=== PATIENT | male | born 1975 | race Caucasian/White ===

== ENCOUNTER 2021-11-19 17:20 | Inpatient (IN) | payer MEDICARE, MEDICAID, SELFPAY ==
[2021-11-19 17:24] VITALS: BP 128/85; PULSE 72; RESP 17; TEMP 36.4; O2SAT 97
[2021-11-19 17:27] VITALS: BMI 30.8
[2021-11-19 20:59] VITALS: BP 127/87; PULSE 97; RESP 17; TEMP 36.4; O2SAT 97
[2021-11-20 00:06] LABS: Bilirubin Urine Neg (Negative); Blood Urine Neg (Negative); Glucose Urine UA Norm (Normal); Ketones Urine Negative (Negative); Leukocyte Esterase Urine Negative (Negative); Nitrate Urine Negative (Negative); Protein Urine Neg (Negative); Specific Gravity, Urine 1.005 (1.005-1.030); Urine Appearance Clear (CLEAR); Urine Color Straw (Yellow); Urobilinogen Urine Norm (Negative); pH Urine 7 (5-7)
[2021-11-20 05:24] VITALS: BP 146/105; PULSE 75; RESP 18; TEMP 36.4; O2SAT 100
--- NOTE | 2021-11-20 05:30 | PC.NURSE ---
Patient BP 145/105 with automatic cuff, 136/102 with manual ciff and auscultation. Patient did not sleep most of the night and refused all meds to assist with sleep, stating I only take things that are medically necessary. i don't take meds because I need to be able to think about the things I have gone through. I educated patient on importance of sleep and mental health, and how lack of sleep can affect the body including the heart. Offered patient PRN hydroxyzine PO and patient refused, stating, I don't think its medically necessary.
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
[2021-11-20 13:37] VITALS: BP 121/81; PULSE 67; RESP 18; TEMP 36.6; O2SAT 99
[2021-11-20 21:07] VITALS: BP 134/88; PULSE 59; RESP 17; TEMP 36.6; O2SAT 98
[2021-11-21 06:00] VITALS: BP 148/79; PULSE 73; RESP 18; TEMP 36.8; O2SAT 97
[2021-11-21 14:00] VITALS: BP 137/91; PULSE 66; RESP 16; O2SAT 98
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
[2021-11-21 21:09] VITALS: BP 136/90; PULSE 70; RESP 22; TEMP 36.6; O2SAT 99
[2021-11-22 05:41] VITALS: BP 123/90; PULSE 78; RESP 17; TEMP 36.3; O2SAT 99
[2021-11-22 14:00] VITALS: RESP 18
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
[2021-11-22 21:11] VITALS: BP 143/89; PULSE 103; RESP 18; TEMP 36.4; O2SAT 100
[2021-11-23] MEDS: haloperidol inj 5 mg/mL INJ 1 mL IM (02:48)
[2021-11-23] MEDS: LORazepam 2 mg/mL INJ 1 mL IM (02:49)
[2021-11-23] MEDS: diphenhydrAMINE 50 mg/mL SDV 1mL IM (02:49)
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
[2021-11-23 06:00] VITALS: RESP 16
[2021-11-23 14:00] VITALS: BP 120/82; PULSE 92; RESP 18; TEMP 36.4; O2SAT 99
--- NOTE | 2021-11-23 18:18 | W.PM.NPUPNS ---
Subjective NPU Subjective: Interval history: Patient presents today reporting that he is doing great. He had no explanation for the events of last night reporting that he is fine now. I did those episodes are suggestive of the need for medication given the time and the presentation. He reports that I needed to speak up for myself. He reported feeling like people always take advantage of him and that he needs to stand up for himself and stand up for God. We again discussed medication he reported that God will take care of him and everything is in God's hands. He talked about when to go be a missionary in [place]. Mental Status Exam MSE Comments: This is an obese white male in hospital scrubs with limited grooming and eye contact.? No abnormal movements except for mild psychomotor agitation.? Mostly cooperative with exam in mild distress.? Speech was normal rate and volume.? Mood described as okay affect odd.? Thought process organized.? Thought content: Patient denied suicidal or homicidal ideations, there were no delusions reported but clear hyper yarsanism, paranoid and persecutory delusions were noted, he denied auditory or visual hallucinations but spoke about hearing from God.? Attention and concentration were intact and memory appeared reliable but none were formally tested.? He is alert and oriented x3.? Insight and judgment are impaired and impulse control is limited to impaired Vitals/I&O/Wt Last Vital Signs Temp 97.9 F 11/23/21 21:27 Pulse 102 H 11/23/21 21:27 Resp 16 11/23/21 21:27 BP 148/84 11/23/21 21:27 Pulse Ox 99 11/23/21 21:27 A&P Assessment and plan (1) Schizoaffective disorder, bipolar type: Status: Acute Plan This is a 46-year-old resident of a residential care facility who comes because of increased hallucinations and delusions. Plan: 1.? Will observe only on as needed olanzapine zydis and other routine as needed medications at this time.? He would clearly benefit from an antipsychotic. We will initiate medications tomorrow with injection for refusal. 2.? Continue every 15 minute checks for safety. 3.? Encourage individual, group and milieu therapies. 4.? Encourage sober living treatment after discharge at the highest level of care to which he is willing to commit. 5.? We will try to get him to consider taking medication, but is resistent. Involuntary Hold Information 96 Hour Hold: 96 Hour Involuntary Admission: No Attestations NPU Medical Necessity Statement*: Inpatient hospitalization is medically necessary and the clinically appropriate intervention at this time.? We will initiate medications and make changes as indicated.?Likely length of stay 4-6 days Coding Level of Care Code Acute Screen Cutter And Trimmer for [facility] Fwd Diagnoses Schizoaffective disorder, bipolar type F25.0
[2021-11-23 21:27] VITALS: BP 148/84; PULSE 102; RESP 16; TEMP 36.6; O2SAT 99
[2021-11-24 06:00] VITALS: BP 120/74; PULSE 79; RESP 16; O2SAT 97; BMI 30.8
--- NOTE | 2021-11-24 09:21 | PC.NURSE ---
Patient up. Denies SI/HI or AVH. Thought process remains delusional and bizarre. Frequently talking to self. Paces in vargas often. Had brief outburst. Yelling, in another patient's room, refused to leave, going through that patient's paperwork, laid in her bed yelling that he needed to be crucified. Flipped staff off and yelled at them when redirection attempted. Threatening posture, yelling call security. Security called. Before security arrived patient was able to be redirected by staff and calmed quickly then. Apologized for outburst and being in another's belongings. Left room and went to dayroom. Offered PRN medications but patient refused and stated he would remain calm. No further outbursts at this time.
[2021-11-24 14:00] VITALS: BP 137/92; PULSE 76; RESP 16; TEMP 36.6; O2SAT 100
--- NOTE | 2021-11-24 15:01 | P.NPUPN_ITS ---
Subjective NPU Subjective: Interval history: Patient presents today with no significant changes and continuing to be clearly hyper samaritan and at times aggressive. He has had multiple occasions where he has needed as needed medication. We discussed that we attempted to reach his guardian without success and we will try again tomorrow. We discussed the fact that medication would need to be started which he definitely opposed. Mental Status Exam MSE Comments: This is an obese white male in hospital scrubs with limited grooming and eye contact.? No abnormal movements except for mild psychomotor agitation.? Mostly cooperative with exam in mild distress.? Speech was normal rate and volume.? Mood described as blessed affect odd.? Thought process organized.? Thought content: Patient denied suicidal or homicidal ideations, there were no delusions reported but clear hyper samaritan, paranoid and persecutory delusions were noted, he denied auditory or visual hallucinations but spoke about hearing from God.? Attention and concentration were intact and memory appeared reliable but none were formally tested.? He is alert and oriented x3.? Insight and judgment are impaired and impulse control is limited to impaired Vitals/I&O/Wt Last Vital Signs Temp 97.9 F 11/24/21 14:00 Pulse 76 11/24/21 14:00 Resp 16 11/24/21 14:00 BP 137/92 11/24/21 14:00 Pulse Ox 100 11/24/21 14:00 Weight last 48 hrs Weight 94.801 kg A&P Assessment and plan (1) Schizoaffective disorder, bipolar type: Status: Acute (2) Psychosis: Status: Acute Plan This is a 46-year-old resident of a residential care facility who comes because of increased hallucinations and delusions. Plan: 1.? Will observe only on as needed olanzapine zydis and other routine as needed medications at this time.? He would clearly benefit from an antipsychotic.? We will initiate medications tomorrow with injection for refusal. Attempted again to reach guardian will 2.? Continue every 15 minute checks for safety. 3.? Encourage individual, group and milieu therapies. 4.? Encourage sober living treatment after discharge at the highest level of care to which he is willing to commit. 5.? We will try to get him to consider taking medication, but is resistent. Initiate medication once we get clarification. Involuntary Hold Information 96 Hour Hold: 96 Hour Involuntary Admission: No Attestations NPU Medical Necessity Statement*: Inpatient hospitalization is medically necessary and the clinically appropriate intervention at this time.? We will initiate medications and make changes as indicated.?Likely length of stay 4-6 days Coding Level of Care Code Acute Assistant To The President for g Fwd Diagnoses Schizoaffective disorder, bipolar type F25.0 Psychosis F29
[2021-11-24 21:38] VITALS: BP 146/81; PULSE 77; RESP 16; TEMP 36.7; O2SAT 98
[2021-11-24] MEDS: blistex lip oint 7 gm Tube 1 APPLIC TOPICAL (21:58)
[2021-11-25 05:16] VITALS: BP 124/91; PULSE 87; RESP 22; TEMP 36.7; O2SAT 97
--- NOTE | 2021-11-25 12:34 | NPU.GN ---
[facility] Group Topic:Whine Barrel Group Activity General Mood of Group: Adrien did attend and participate in group today. His hygiene was ok.
[2021-11-25 14:00] VITALS: BP 132/82; PULSE 119; RESP 20; TEMP 36.7; O2SAT 95
--- NOTE | 2021-11-25 14:00 | PC.NURSE ---
Patient's guardian, Alonzo Estrada, contacted by staff to evaluate outlook of medications. Guardian was in agreeance with staff that patient is in need of medications for his safety and gave consent for medications to be given. May give IM meds if needed.
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
[2021-11-25] MEDS: diphenhydrAMINE 50 mg/mL SDV 1mL IM (17:00)
[2021-11-25] MEDS: haloperidol inj 5 mg/mL INJ 1 mL IM (17:00)
[2021-11-25] MEDS: LORazepam 2 mg/mL INJ 1 mL IM (17:00)
--- NOTE | 2021-11-25 17:42 | PC.NURSE ---
PATIENT RESTING IN BED WITH EYES CLOSED, SNORING. NO DISTRESS NOTED. WILL CONT TO MONITOR, SUPPORT AND REDIRECT NEEDED
--- NOTE | 2021-11-25 19:04 | PC.NURSE ---
Staff attempted to call guardian to notify of code 10 situation. No answer and no option to leave message for return call. Staff will attempt to call again in morning.
[2021-11-25 22:00] VITALS: BP 119/80; PULSE 92; RESP 18; TEMP 36.4; O2SAT 97
[2021-11-26] MEDS: OLANZapine 5 mg ODT PO ×2 (05:59→20:55)
[2021-11-26 06:00] VITALS: BP 142/89; PULSE 86; RESP 17; TEMP 36.9; O2SAT 93
[2021-11-26] MEDS: haloperidol inj 5 mg/mL INJ 1 mL IM (06:05)
[2021-11-26] MEDS: diphenhydrAMINE 50 mg/mL SDV 1mL IM (06:05)
[2021-11-26] MEDS: LORazepam 2 mg/mL INJ 1 mL IM (06:05)
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
--- NOTE | 2021-11-26 13:11 | PC.NURSE ---
1235 Pt refused 6mg PO Invega.
--- NOTE | 2021-11-26 13:12 | NPU.GN ---
[facility] Topic: Triggers, Coping Skills, Crisis Intervention Plan General Mood of Group: Adrien did attend and participate in group this morning. Hygiene was ok. He got up and left group a few times coming in and out of group. He does not seem stable at this time.
[2021-11-26] MEDS: ziprasidone 20 mg/mL SDV IM (13:31)
[2021-11-26 14:00] VITALS: BP 122/77; PULSE 92; RESP 16; TEMP 36.6; O2SAT 99
[2021-11-26] MEDS: paliperidone ER 6 mg Tablet PO (14:02)
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
[2021-11-26 21:23] VITALS: BP 132/92; PULSE 106; RESP 16; TEMP 37; O2SAT 97
--- NOTE | 2021-11-26 22:55 | PC.NURSE ---
PT GIVEN ZYPRXA THIS EVENING DUE TO ELEVATED BP AND TO HELP PREVENT AGGRESSIVE RAMPS
[2021-11-27 06:00] VITALS: BP 121/79; PULSE 86; RESP 18; TEMP 36.3; O2SAT 97
[2021-11-27] MEDS: paliperidone ER 6 mg Tablet PO (07:55)
[2021-11-27 14:00] VITALS: BP 151/95; PULSE 88; RESP 18; TEMP 36.3; O2SAT 99
--- NOTE | 2021-11-27 16:34 | P.NPUPN_ITS ---
Subjective NPU Subjective: Interval history: Patient presents today for the first time open to taking his medications orally without any challenge. He took them today without any prodding or pressure. He denied any side effects to the medication. He was very optimistic about how great he was feeling. He denied any problems or concerns. Mental Status Exam MSE Comments: This is an obese white male in hospital scrubs with limited grooming and eye contact.? No abnormal movements except for mild psychomotor agitation.? More cooperative with exam in no acute distress.? Speech was slightly increased rate and volume.? Mood described as great, affect manic.? Thought process disorganized.? Thought content: Patient denied suicidal or homicidal ideations, there were no delusions reported but clear hyper congregation, paranoid and persecutory delusions were noted, he denied auditory or visual hallucinations.? Attention and concentration were impaired and memory appeared unreliable but none were formally tested.? He is alert and oriented x3.? Insight and judgment are impaired and impulse control is limited. Vitals/I&O/Wt Last Vital Signs Temp 97.4 F L 11/27/21 14:00 Pulse 88 11/27/21 14:00 Resp 18 11/27/21 14:00 BP 151/95 11/27/21 14:00 Pulse Ox 99 11/27/21 14:00 A&P Assessment and plan (1) Psychosis: Status: Acute (2) Schizoaffective disorder, bipolar type: Status: Acute Plan This is a 46-year-old resident of a residential care facility who comes because of increased hallucinations and delusions. Plan: 1.? Started Invega 6 mg p.o. daily. ? We will initiate injection of Haldol or Geodon for p.o. refusal.? If continued improvement exist we will quickly moved to Invega Sustenna injection. The possibility exists for him to move to every 3 month or two 6-month injections at some point. 2.? Continue every 15 minute checks for safety. 3.? Encourage individual, group and milieu therapies. 4.? Encourage sober living treatment after discharge at the highest level of care to which he is willing to commit. 5. Patient showing improvement and is taking medication but likely not as improved as he is reporting clear manic symptoms or presentation exists. Involuntary Hold Information 96 Hour Hold: 96 Hour Involuntary Admission: No Attestations NPU Medical Necessity Statement*: Inpatient hospitalization is medically necessary and the clinically appropriate intervention at this time.? We will initiate medications and make changes as indicated.?Likely length of stay 7-9 days Coding Level of Care Code Acute Weaver Needle Loom for g Fwd Diagnoses Psychosis F29 Schizoaffective disorder, bipolar type F25.0
[2021-11-27 22:00] VITALS: BP 143/78; PULSE 82; RESP 16; TEMP 36.6; O2SAT 97
[2021-11-28 06:00] VITALS: BP 119/79; PULSE 74; RESP 18; TEMP 36; O2SAT 96
[2021-11-28] MEDS: paliperidone ER 6 mg Tablet PO (09:42)
--- NOTE | 2021-11-28 13:24 | P.NPUPN_ITS ---
Subjective NPU Subjective: Interval history: Patient presents today seeming to be a little less well yesterday. We discussed that likely the medications that he received 2 days ago impacted him in addition to the starting of the Invega. He continues to report that he feels great but we discussed that it seems he is a little more manic. We discussed the risk- benefit alternatives of continuing to titrate the Invega and he understood and agreed proceed as is documented in this note. Mental Status Exam MSE Comments: This is an obese white male in hospital scrubs with limited grooming and eye contact.? No abnormal movements except for mild psychomotor agitation.? More cooperative with exam in mild distress.? Speech was slightly increased rate and volume.? Mood described as great, affect manic.? Thought process disorganized.? Thought content: Patient denied suicidal or homicidal ideations, there were no delusions reported but clear hyper temple, paranoid and persecutory delusions were noted, he denied auditory or visual hallucinations.? Attention and concentration were impaired and memory appeared unreliable but none were formally tested.? He is alert and oriented x3.? Insight and judgment are impaired and impulse control is limited. Vitals/I&O/Wt Last Vital Signs Temp 96.8 F L 11/28/21 06:00 Pulse 74 11/28/21 06:00 Resp 18 11/28/21 06:00 BP 119/79 11/28/21 06:00 Pulse Ox 96 11/28/21 06:00 A&P Assessment and plan (1) Psychosis: Status: Acute (2) Schizoaffective disorder, bipolar type: Status: Acute Plan This is a 46-year-old resident of a residential care facility who comes because of increased hallucinations and delusions. Plan: 1.? Increase Invega to 9 mg p.o. daily. ? We will initiate injection of Geodon for p.o. refusal.? If continued improvement exist we will quickly moved to Invega Sustenna injection.? The possibility exists for him to move to every 3 month or two 6-month injections at some point. We will likely introduce Geodon at night tomorrow again with injection of Geodon for p.o. refusal. 2.? Continue every 15 minute checks for safety. 3.? Encourage individual, group and milieu therapies. 4.? Encourage sober living treatment after discharge at the highest level of care to which he is willing to commit. 5.? Patient showing improvement and is taking medication but likely not as improved as he is reporting clear manic symptoms. Involuntary Hold Information 96 Hour Hold: 96 Hour Involuntary Admission: No Attestations NPU Medical Necessity Statement*: Inpatient hospitalization is medically necessary and the clinically appropriate intervention at this time.? We will initiate medications and make changes as indicated.?Likely length of stay 7-8 days Coding Level of Care Code Acute Door To Door Fundraising Collector for [facility] Fwd Diagnoses Psychosis F29 Schizoaffective disorder, bipolar type F25.0
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
[2021-11-28 14:00] VITALS: BP 145/91; PULSE 89; RESP 18; TEMP 36.8; O2SAT 97
[2021-11-28 20:51] VITALS: BP 120/83; PULSE 105; RESP 17; TEMP 36.8; O2SAT 98
[2021-11-28] MEDS: LORazepam 2 mg Tablet PO (20:55)
[2021-11-28] MEDS: ziprasidone hcl 40 mg Capsule PO (20:55)
--- NOTE | 2021-11-28 21:10 | PC.NURSE ---
PATIENT WAS ON PHONE. BECAME ANGRY, AGRESSIVE, HOSTILE AND VIOLENT. POUNDING ON WINDOW THREATENING STAFF, DARING FOR STAFF TO SHOOT / TAZE HIM. SECURITY CALLED PIN MACHINE OPERATOR CALLED. ORDER OBTAINED FROM DR. MELGAR FOR [id number] PO AND ATAVAN 2MG PO GIVE NOW.
[2021-11-29 06:00] VITALS: BP 128/82; PULSE 76; RESP 18; TEMP 36.4; O2SAT 97
[2021-11-29] MEDS: paliperidone ER 3 mg Tablet 9 MG PO (10:08)
[2021-11-29 14:00] VITALS: BP 171/111; PULSE 100; RESP 20; TEMP 36.6; O2SAT 100
--- NOTE | 2021-11-29 17:04 | W.PM.NPUPNS ---
Subjective NPU Subjective: Interval history: Patient presents today with again expressing his desire not to take the medication. We continue to enforce with him the IM injection for p.o. refusal. We also continue to reinforce that he has a guardian and that the appropriate way to institute a change would be to get his guardian to treat as an alternative style of treatment. He seemed open to managing things that way reporting that he would continue the medication until agreement for change was reached. Luz Maria sat and he was allowed to speak he was very much focused on normalizing his thinking about attraction to younger people trying to make clarifications of situations where it would officially be okay speaking about ages of the above 18 and 21 and things of that nature. Mental Status Exam MSE Comments: This is an obese white male in hospital scrubs with limited grooming and eye contact.? No abnormal movements except for occasional moments of mild psychomotor agitation.? More cooperative with exam in with occasional moments of mild distress.? Speech was slightly increased rate and volume.? Mood described as really good, affect more calm at times.? Thought process disorganized, with moments of organization Thought content: Patient denied suicidal or homicidal ideations, there were no delusions reported but clear hyper spiritism, paranoid and persecutory delusions were noted, he denied auditory or visual hallucinations.? Attention and concentration were impaired and memory appeared unreliable but none were formally tested.? He is alert and oriented x3.? Insight and judgment are impaired and impulse control is limited. Vitals/I&O/Wt Last Vital Signs Temp 97.6 F 11/29/21 20:55 Pulse 100 11/29/21 20:55 Resp 20 H 11/29/21 20:55 BP 131/89 11/29/21 20:55 Pulse Ox 99 11/29/21 20:55 A&P Assessment and plan (1) Psychosis: Status: Acute (2) Schizoaffective disorder, bipolar type: Status: Acute Plan This is a 46-year-old resident of a residential care facility who comes because of increased hallucinations and delusions. Plan: 1.? Increase Invega to 9 mg p.o. daily. ? We will initiate injection of Geodon for p.o. refusal.? If continued improvement exist we will quickly moved to Invega Sustenna injection.? The possibility exists for him to move to every 3 month or two 6-month injections at some point.? We started Geodon 40 mg p.o. q. evening with meals again with injection of Geodon for p.o. refusal. 2.? Continue every 15 minute checks for safety. 3.? Encourage individual, group and milieu therapies. 4.? Encourage sober living treatment after discharge at the highest level of care to which he is willing to commit. 5.? Patient showing improvement and is taking medication but likely not as improved as he is reporting clear manic symptoms. Involuntary Hold Information 96 Hour Hold: 96 Hour Involuntary Admission: No Attestations NPU Medical Necessity Statement*: Inpatient hospitalization is medically necessary and the clinically appropriate intervention at this time.? We will initiate medications and make changes as indicated.?Likely length of stay 6-7 days Coding Level of Care Code Acute Lawn Mower Sharpener for Kiana Mena Diagnoses Psychosis F29 Schizoaffective disorder, bipolar type F25.0
[2021-11-29] MEDS: ziprasidone hcl 40 mg Capsule PO (17:09)
[2021-11-29 20:55] VITALS: BP 131/89; PULSE 100; RESP 20; TEMP 36.4; O2SAT 99
[2021-11-30 06:00] VITALS: BP 131/92; PULSE 98; RESP 20; TEMP 36.4; O2SAT 98
[2021-11-30] MEDS: paliperidone ER 3 mg Tablet 9 MG PO (08:34)
[2021-11-30] MEDS: OLANZapine 5 mg ODT PO (08:36)
[2021-11-30 14:00] VITALS: BP 129/88; PULSE 80; RESP 17; TEMP 36.8; O2SAT 99
[2021-11-30] MEDS: ziprasidone hcl 40 mg Capsule PO (17:12)
--- NOTE | 2021-11-30 17:59 | W.PM.NPUPNS ---
Subjective NPU Subjective: Interval history: Patient presents today continuing to take his medication but continuing to have active tari. At 1 point in the day he asked that the 2 of us could go out on a date. He at this point is adhering to the agreement that he take his medication to avoid needing an injection but otherwise no outburst in the last 24 to 48 hours. He is eating and sleeping better. And taking his medication as scheduled. Mental Status Exam MSE Comments: This is an obese white male in hospital scrubs with limited grooming and eye contact.? No abnormal movements except for occasional moments of mild psychomotor agitation.? More cooperative with exam in no acute distress.? Speech was slightly increased rate and volume.? Mood described as great, affect more calm but still euphoric.? Thought process more organized and less hyper quaker thought content: Patient denied suicidal or homicidal ideations, there were no delusions reported but decreasing delusions with ideas paranoid and persecutory overtones, he denied auditory or visual hallucinations.? Attention and concentration are improving and memory appeared unreliable but none were formally tested.? He is alert and oriented x3.? Insight and judgment are limited and impulse control is limited. Vitals/I&O/Wt Last Vital Signs Temp 98.3 F 11/30/21 14:00 Pulse 80 11/30/21 14:00 Resp 17 11/30/21 14:00 BP 129/88 11/30/21 14:00 Pulse Ox 99 11/30/21 14:00 A&P Assessment and plan (1) Psychosis: Status: Acute (2) Schizoaffective disorder, bipolar type: Status: Acute Plan This is a 46-year-old resident of a residential care facility who comes because of increased hallucinations and delusions. Plan: 1.? Increase Invega to 9 mg p.o. daily. ? We will initiate injection of Geodon for p.o. refusal.? If continued improvement exist we will quickly moved to Invega Sustenna injection.? The possibility exists for him to move to every 3 month or two 6-month injections at some point.? We started Geodon 40 mg p.o. q. evening with meals again with injection of Geodon for p.o. refusal. 2.? Continue every 15 minute checks for safety. 3.? Encourage individual, group and milieu therapies. 4.? Encourage sober living treatment after discharge at the highest level of care to which he is willing to commit. 5.? Patient showing improvement and is taking medication but likely not as improved as he is reporting clear manic symptoms. Involuntary Hold Information 96 Hour Hold: 96 Hour Involuntary Admission: No Attestations NPU Medical Necessity Statement*: Inpatient hospitalization is medically necessary and the clinically appropriate intervention at this time.? We will initiate medications and make changes as indicated.?Likely length of stay 6-7 days. Coding Level of Care Code Acute Social Sciences Department Chair for Kiana Mena Diagnoses Psychosis F29 Schizoaffective disorder, bipolar type F25.0
[2021-11-30 21:30] VITALS: BP 127/68; PULSE 68; RESP 17; TEMP 36.8; O2SAT 98
[2021-12-01 06:00] VITALS: BP 118/69; PULSE 85; RESP 18; TEMP 36.8; O2SAT 96; BMI 30.8
[2021-12-01] MEDS: paliperidone ER 3 mg Tablet 9 MG PO (09:48)
--- NOTE | 2021-12-01 09:59 | W.PM.NPUPNS ---
Subjective NPU Subjective: Interval history: Patient presents today reporting that he is feeling wonderful. He continues to have clear euphoria at times saying he is doing his well as he is ever done and the things are wonderful. This morning he took his medication without concern and is eating and sleeping fine. He is very interactive and is denying any problems though continues to be manic. Mental Status Exam MSE Comments: This is an obese white male in hospital scrubs with limited grooming and eye contact.? No abnormal movements except for occasional moments of mild psychomotor agitation.? More cooperative with exam in no acute distress.? Speech was slightly increased rate and volume.? Mood described as wonderful, affect more calm but still euphoric.? Thought process more organized and less hyper advent thought content: Patient denied suicidal or homicidal ideations, there were no delusions reported but decreasing delusions with obvious paranoid and persecutory overtones, he denied auditory or visual hallucinations.? Attention and concentration are improving and memory appeared unreliable but none were formally tested.? He is alert and oriented x3.? Insight and judgment are limited and impulse control is limited. Vitals/I&O/Wt Last Vital Signs Temp 98.3 F 12/01/21 06:00 Pulse 85 12/01/21 06:00 Resp 18 12/01/21 06:00 BP 118/69 12/01/21 06:00 Pulse Ox 96 12/01/21 06:00 A&P Assessment and plan (1) Schizoaffective disorder, bipolar type: Status: Acute (2) Psychosis: Status: Acute (3) Toma: Status: Acute Plan This is a 46-year-old resident of a residential care facility who comes because of increased hallucinations and delusions. Plan: 1.? Increase Invega to 9 mg p.o. daily. ? We will initiate injection of Geodon for p.o. refusal.? If continued improvement exist we will quickly moved to Invega Sustenna injection.? The possibility exists for him to move to every 3 month or two 6-month injections at some point.? We started Geodon 40 mg p.o. q. evening with meals again with injection of Geodon for p.o. refusal. May consider initiating a morning Geodon dose to continue addressing his toma. 2.? Continue every 15 minute checks for safety. 3.? Encourage individual, group and milieu therapies. 4.? Encourage sober living treatment after discharge at the highest level of care to which he is willing to commit. 5.? Patient showing improvement and is taking medication but likely not as improved as he is reporting, with clear manic symptoms. Involuntary Hold Information 96 Hour Hold: 96 Hour Involuntary Admission: No Attestations NPU Medical Necessity Statement*: Inpatient hospitalization is medically necessary and the clinically appropriate intervention at this time.? We will initiate medications and make changes as indicated.?Likely length of stay 6-7 days. Coding Level of Care Code Acute Medical Assistant Prn for [facility] Fwd Diagnoses Schizoaffective disorder, bipolar type F25.0 Psychosis F29 Toma F30.9
[2021-12-01 14:00] VITALS: BP 152/96; PULSE 85; RESP 16; TEMP 36.3; O2SAT 99
[2021-12-01] MEDS: ziprasidone 20 mg/mL SDV IM (18:44)
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
[2021-12-01 20:57] VITALS: BP 132/85; PULSE 99; RESP 17; TEMP 36.7; O2SAT 98
[2021-12-02 06:00] VITALS: BP 135/87; PULSE 94; RESP 18; TEMP 36.6; O2SAT 100
[2021-12-02] MEDS: paliperidone palmitate 234 mg Syringe IM (12:31)
[2021-12-02] MEDS: ziprasidone 20 mg/mL SDV IM (12:32)
--- NOTE | 2021-12-02 12:54 | W.PM.NPUPNS ---
Subjective NPU Subjective: Interval history: Patient presents today once again refusing his medication. We called multiple security guards and staff on the unit and preparation of having to force of the medication. Ultimately we did not have to restrain him and took medication as prescribed. In addition to the IM Geodon 20 mg which was the force medication for not taking the oral Geodon he got his first dose of Invega 234 mg IM as a loading dose. This was explained to him. He ultimately said that he does not like taking the medication but sometimes you have taken a shot better than taking the pills possibly to be a martyr of sorts. We discussed that his guardian had okayed switching to the IM medication. His prepress technician was also supportive of him going to IM for least the Invega. Mental Status Exam MSE Comments: This is an obese white male in hospital scrubs with limited grooming and eye contact.? No abnormal movements except for occasional moments of mild psychomotor agitation.? More cooperative with exam in no acute distress.? Speech was slightly increased rate and volume.? Mood described as great, affect more calm but still euphoric.? Thought process more organized and less hyper jew thought content: Patient denied suicidal or homicidal ideations, there were no delusions reported but decreasing delusions with obvious paranoid and persecutory overtones, he denied auditory or visual hallucinations.? Attention and concentration are improving and memory appeared unreliable but none were formally tested.? He is alert and oriented x3.? Insight and judgment are limited and impulse control is limited. Vitals/I&O/Wt Last Vital Signs Temp 97.8 F 12/02/21 06:00 Pulse 94 12/02/21 06:00 Resp 18 12/02/21 06:00 BP 135/87 12/02/21 06:00 Pulse Ox 100 12/02/21 06:00 Weight last 48 hrs Weight 94.801 kg A&P Assessment and plan (1) Toma: Status: Acute (2) Psychosis: Status: Acute (3) Schizoaffective disorder, bipolar type: Status: Acute Plan This is a 46-year-old resident of a residential care facility who comes because of increased hallucinations and delusions. Plan: 1.? Continue current medication. Except we started Geodon 40 mg p.o. q. evening with meals again with injection of Geodon for p.o. refusal.? Increasing Geodon to 40 mg p.o. twice daily with meals and will give Invega Sustenna 234 mg IM to deltoid for first loading dose. 2.? Continue every 15 minute checks for safety. 3.? Encourage individual, group and milieu therapies. 4.? Encourage sober living treatment after discharge at the highest level of care to which he is willing to commit. 5.? Patient showing improvement and is taking medication but likely not as improved as he is reporting, with clear manic symptoms. Involuntary Hold Information 96 Hour Hold: 96 Hour Involuntary Admission: No Attestations NPU Medical Necessity Statement*: Inpatient hospitalization is medically necessary and the clinically appropriate intervention at this time.? We will initiate medications and make changes as indicated.?Likely length of stay 6-7 days. Coding Level of Care Code Acute Care Professional for [facility] Diagnoses Toma F30.9 Psychosis F29 Schizoaffective disorder, bipolar type F25.0
--- NOTE | 2021-12-02 13:12 | NPU.GN ---
[facility] Topic: Whine Barrel Activity General Mood of Group: Adrien did participate and attend group today. His hygiene was ok. He was social in group.
[2021-12-02 14:00] VITALS: BP 132/89; PULSE 90; RESP 20; TEMP 36.6; O2SAT 98
[2021-12-02] MEDS: ziprasidone hcl 40 mg Capsule PO (17:27)
[2021-12-02 22:00] VITALS: BP 115/70; PULSE 86; RESP 18; O2SAT 97
[2021-12-03 06:00] VITALS: BP 137/92; PULSE 106; RESP 20; TEMP 36.8; O2SAT 97
[2021-12-03] MEDS: ziprasidone hcl 40 mg Capsule PO ×2 (08:45→17:03)
--- NOTE | 2021-12-03 13:04 | NPU.GN ---
[facility] Topic: Self Care General Mood of Group: Adrien did attend and particpate in group today. He did well. He does not seem stable at this time. Unless this is his baseline behavior. During the group he would often start giggling and rocking . Hygiene was ok.
[2021-12-03 14:00] VITALS: BP 125/78; PULSE 88; RESP 17; TEMP 36.9; O2SAT 98
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
[2021-12-03 20:23] VITALS: BP 128/87; PULSE 88; RESP 16; TEMP 36.9; O2SAT 99
[2021-12-04 05:46] VITALS: BP 129/80; PULSE 94; RESP 17; TEMP 36.8; O2SAT 94
[2021-12-04] MEDS: ziprasidone hcl 40 mg Capsule PO ×2 (08:40→16:54)
--- NOTE | 2021-12-04 12:56 | NPU.GN ---
[facility] Topic:Coping Skills General Mood of Group: Adrien did attend and participated in group today. He seems to be getting better. He was social and his hygiene was good.
[2021-12-04 13:50] VITALS: PULSE 92; RESP 20; TEMP 36.9; O2SAT 98
--- NOTE | 2021-12-04 17:58 | P.NPUPN_ITS ---
Subjective NPU Subjective: Interval history: Patient presented today reporting that he is feeling much better. He did not have outbursts or need for as needed interventions or medications. He took his medication as prescribed. He expressed gratitude about how he has been treated during the time that this contract writer was here as we discussed the Dr. Oakley would be here tomorrow making independent decisions about moving forward with treatment. We discussed the plan for his second loading dose of Invega to be given prior to discharge and no later than next Thursday. He reported eating and sleeping fine. Mental Status Exam MSE Comments: This is an obese white male in hospital scrubs with limited grooming and eye contact.? No abnormal movements except for mild psychomotor retardation.? More cooperative with exam in no acute distress.? Speech was more normal rate and volume.? Mood described as pretty good, affect more calm.? Thought process more organized and less hyper amish thought content: Patient denied suicidal or homicidal ideations, there were no delusions reported and decreasing delusions with less paranoid and persecutory overtones, he denied auditory or visual hallucinations.? Attention and concentration are improving and memory appeared unreliable but none were formally tested.? He is alert and oriented x3.? Insight and judgment are limited and impulse control is limited. Vitals/I&O/Wt Last Vital Signs Temp 98.0 F 12/04/21 20:19 Pulse 94 12/04/21 20:19 Resp 24 H 12/04/21 20:19 BP 152/91 12/04/21 20:19 Pulse Ox 96 12/04/21 20:19 A&P Assessment and plan (1) Toma: Status: Acute (2) Psychosis: Status: Acute (3) Schizoaffective disorder, bipolar type: Status: Acute Plan This is a 46-year-old resident of a residential care facility who comes because of increased hallucinations and delusions. Plan: 1.? Continue current medication.? Increased Geodon to 40 mg p.o. twice daily with meals with injection of Geodon for p.o. refusal.? and gave Invega Sustenna 234 mg IM to deltoid for first loading dose. Next dose due IM deltoid 156 mg by December 09, 2021. 2.? Continue every 15 minute checks for safety. 3.? Encourage individual, group and milieu therapies. 4.? Encourage sober living treatment after discharge at the highest level of ca re to which he is willing to commit. 5.? Patient showing improvement and is taking medication but likely not as improved as he is reporting, with clear manic symptoms. Involuntary Hold Information 96 Hour Hold: 96 Hour Involuntary Admission: No Attestations NPU Medical Necessity Statement*: Inpatient hospitalization is medically necessary and the clinically appropriate intervention at this time.? We will initiate medications and make changes as indicated.?Likely length of stay 5-6 days. Coding Level of Care Code Acute Tube Builder Airplane for [facility] Diagnoses Toma F30.9 Psychosis F29 Schizoaffective disorder, bipolar type F25.0
[2021-12-04 20:19] VITALS: BP 152/91; PULSE 94; RESP 24; TEMP 36.7; O2SAT 96
[2021-12-05 06:00] VITALS: BP 124/77; PULSE 82; RESP 18; TEMP 36.6; O2SAT 97
[2021-12-05] MEDS: ziprasidone hcl 40 mg Capsule PO ×2 (10:25→18:18)
--- NOTE | 2021-12-05 12:53 | NPU.GN ---
[facility] Topic:Symptoms/ Judgment Boat Activity General Mood of Group: Adrien did attend and participate in group today. Hygiene was ok. He was very social with another client. He seems to be more stable that he was before. He enjoyed today's activity.
--- NOTE | 2021-12-05 13:15 | W.PM.NPUPNS ---
Subjective NPU Subjective: Interval history: He says that he is doing much better. He feels that the medications are helping him. He says that he realized that he did not want to be around other children when he was a child because he was embarrassed that he was attracted to them. He says that her elevation has helped him greatly. He has been washing the children channel which is bringing back memories and he says that it has been very helpful. He says that things have been prepared for him to leave next Thursday or Thursday to a facility in [place], [place]. He seems pleased with that plan. Mental Status Exam MSE Comments: This is an obese white male in hospital scrubs with limited grooming and eye contact.? No abnormal movements. Very mild psychomotor retardation.? cooperative with exam in no acute distress.? Speech was more normal rate and volume.? Mood described as good, affect more calm.? Thought process more organized and less hyper lutheran thought content: Patient denied suicidal or homicidal ideations, there were no delusions reported and decreasing delusions with less paranoid and persecutory overtones, he denied auditory or visual hallucinations.? Attention and concentration are improving and memory appeared unreliable but none were formally tested.? He is alert and oriented x3.? Insight and judgment are limited and impulse control is limited. Cognition: Patient Appearance: Appropriate Ability to Follow Directions: Good Patient Orientation (long list): Person, Place, Time, Name, Birthday, Month and Year Comprehension Ability: No Impairment Hallucination Type: None Delusion Description: Episcopal Thought Process: Disorganized Affect: Affect Description: Appropriate and Calm Behavior: Patient Behavior: Appropriate and Cooperative Speech Pattern: Appropriate Vitals/I&O/Wt Last Vital Signs Temp 98.5 F 12/05/21 22:00 Pulse 89 12/06/21 06:00 Resp 18 12/06/21 06:00 BP 131/88 12/06/21 06:00 Pulse Ox 97 12/06/21 06:00 A&P Assessment and plan (1) Toma: Status: Acute (2) Psychosis: Status: Acute (3) Schizoaffective disorder, bipolar type: Status: Acute Plan This is a 46-year-old resident of a residential care facility who comes because of increased hallucinations and delusions. Plan: 1.? Continue current medication.? Geodon to 40 mg p.o. twice daily with meals with injection of Geodon for p.o. refusal.? and gave Invega Sustenna 234 mg IM to deltoid for first loading dose. Next dose due IM deltoid 156 mg by December 09, 2021. 2.? Continue every 15 minute checks for safety. 3.? Encourage individual, group and milieu therapies. 4.? Encourage sober living treatment after discharge at the highest level of care to which he is willing to commit. 5.? Patient showing improvement and is taking medication but likely not as improved as he is reporting, with clear manic symptoms. Involuntary Hold Information 96 Hour Hold: 96 Hour Involuntary Admission: No Attestations NPU Medical Necessity Statement*: Inpatient hospitalization is medically necessary and the clinically appropriate intervention at this time. We will initiate medications and make changes as indicated. Coding Level of Care Code Acute Senior Corporate Accountant for [facility] Diagnoses Toma F30.9 Psychosis F29 Schizoaffective disorder, bipolar type F25.0
[2021-12-05 14:00] VITALS: BP 108/64; PULSE 89; RESP 18; TEMP 36.7
[2021-12-05 22:00] VITALS: BP 147/98; PULSE 100; RESP 20; TEMP 36.9; O2SAT 97
[2021-12-06 06:00] VITALS: BP 131/88; PULSE 89; RESP 18; O2SAT 97
--- NOTE | 2021-12-06 07:19 | P.NPUPN_ITS ---
Subjective NPU Subjective: Interval history: He says that he is do well. He feels that the medications are working well. He says that he realized that he did not want to be around other children when he was a child because he was embarrassed that he was attracted to them. He says that her elevation has helped him greatly. He has been washing the children channel which is bringing back memories and he says that it has been very helpful. He says that things have been prepared for him to leave next Thursday or Thursday to a facility in [place], [place]. He seems pleased with that plan. Mental Status Exam MSE Comments: This is an obese white male in hospital scrubs with limited grooming and eye contact.? No abnormal movements. Very mild psychomotor retardation.? cooperative with exam in no acute distress.? Speech was more normal rate and volume.? Mood described as good, affect more calm.? Thought process more organized and less hyper orthodoxy thought content: Patient denied suicidal or homicidal ideations, there were no delusions reported and decreasing delusions with less paranoid and persecutory overtones, he denied auditory or visual hallucinations.? Attention and concentration are improving and memory appeared unreliable but none were formally tested.? He is alert and oriented x3.? Insight and judgment are limited and impulse control is limited. Cognition: Patient Appearance: Appropriate Ability to Follow Directions: Good Patient Orientation (long list): Person, Place, Time, Name, Birthday, Month and Year Comprehension Ability: No Impairment Hallucination Type: None Delusion Description: Judaism Thought Process: Disorganized Affect: Affect Description: Appropriate and Calm Behavior: Patient Behavior: Appropriate and Cooperative Speech Pattern: Appropriate Vitals/I&O/Wt Last Vital Signs Temp 98.5 F 12/05/21 22:00 Pulse 89 12/06/21 06:00 Resp 18 12/06/21 06:00 BP 131/88 12/06/21 06:00 Pulse Ox 97 12/06/21 06:00 A&P Assessment and plan (1) Toma: Status: Acute (2) Psychosis: Status: Acute (3) Schizoaffective disorder, bipolar type: Status: Acute Plan This is a 46-year-old resident of a residential care facility who comes because of increased hallucinations and delusions. Plan: 1.? Continue current medication.? Geodon to 40 mg p.o. twice daily with meals with injection of Geodon for p.o. refusal.? gave Invega Sustenna 234 mg IM to deltoid for first loading dose. Next dose due IM deltoid 156 mg by December 09, 2021. 2.? Continue every 15 minute checks for safety. 3.? Encourage individual, group and milieu therapies. 4.? Encourage sober living treatment after discharge at the highest level of care to which he is willing to commit. 5.? Patient showing improvement and is taking medication but likely not as improved as he is reporting, with clear manic symptoms. Involuntary Hold Information 96 Hour Hold: 96 Hour Involuntary Admission: No Attestations NPU Medical Necessity Statement*: Inpatient hospitalization is medically necessary and the clinically appropriate intervention at this time. We will initiate medications and make changes as indicated. Coding Level of Care Code Acute Software Quality Tester for [facility] Diagnoses Toma F30.9 Psychosis F29 Schizoaffective disorder, bipolar type F25.0
[2021-12-06] MEDS: ziprasidone hcl 40 mg Capsule PO ×2 (10:01→19:08)
[2021-12-06 13:02] VITALS: BP 131/82; PULSE 85; RESP 22; TEMP 36.9; O2SAT 95
--- NOTE | 2021-12-06 13:25 | PC.NURSE ---
7941 Pt became upset over wanting a sandwich, a staff member had replied that we would get one in a little while. Pt began pulling his pants down and grabbing his penis and shaking it around shouting that little girls and boys make him hard and that he was gonna CUM all over the place! Security and two staff members were instructing Pt to please pull up his pants!! Pt would pull them up and then a second later..... pull out his penis again and shake it. Pt then proceeded to yell and scream, cussing loudly, also began to masterbait in the dayroom in front of a female pt on the unit.
[2021-12-06 14:00] VITALS: BP 131/82; PULSE 85; RESP 22; TEMP 36.6; O2SAT 95
[2021-12-06 19:55] VITALS: BP 119/79; PULSE 78; RESP 16; TEMP 36.7; O2SAT 95
[2021-12-07 06:00] VITALS: BP 142/90; PULSE 76; RESP 18; TEMP 36.8; O2SAT 98
[2021-12-07] MEDS: ziprasidone hcl 40 mg Capsule PO (08:48)
--- NOTE | 2021-12-07 11:20 | P.NPUPN_ITS ---
Subjective NPU Subjective: Interval history: Yesterday shortly after much he suddenly decided that he was hungry and needed a sandwich. When it was not provided immediately he started yelling and was very agitated. Shortly after that he dropped his pants and started masturbating in the day room. Today as I was trying to discuss that with him he said that he did that as a test to see how his anxiety would go when he did something like that. He said that it was managed very well and only went up to a 3 where it would have gone up an 8 previously. I told him that was inappropriate behavior. He then dropped his pants and took off his shirt and started going up and down the vargas masturbating. He chased me and also chased nurses groping and saying that he needed various sexual acts. Security had to be called and he was given a B-52 injection. His guardian was contacted yesterday and approved some Depo- Provera which will be given at the same time that his Invega injection is given tomorrow. Mental Status Exam MSE Comments: This is an obese white male in hospital scrubs with limited grooming and eye contact.? No abnormal movements. He was initially calm but quite quickly became agitated as I was discussing his behavior the previous day. Was elevated and he was yelling at times. Mood was not asked because he escalated quickly. Thought process focused on sexual things. He said that the government could read his thoughts. He said that the government already knew what I was thinking. Did not have a chance to ask about suicidal or homicidal ideation.? Attention and concentration are improving and memory appeared unreliable but none were formally tested.? ? Insight and judgment are very poor. Cognition: Patient Appearance: Disheveled/Poor Hygiene Ability to Follow Directions: Good Patient Orientation (long list): Person, Place, Time, Name, Birthday, Month and Year Comprehension Ability: No Impairment Hallucination Type: None Delusion Description: Anabaptism Thought Process: Disorganized Affect: Affect Description: Appropriate and Calm Behavior: Patient Behavior: Appropriate and Cooperative Speech Pattern: Appropriate Vitals/I&O/Wt Last Vital Signs Temp 98.2 F 12/07/21 06:00 Pulse 76 12/07/21 06:00 Resp 18 12/07/21 06:00 BP 142/90 12/07/21 06:00 Pulse Ox 98 12/07/21 06:00 A&P Assessment and plan (1) Toma: Status: Acute (2) Psychosis: Status: Acute (3) Schizoaffective disorder, bipolar type: Status: Acute Plan This is a 46-year-old resident of a residential care facility who comes because of increased hallucinations and delusions. He is becoming increasingly more sexually inappropriate. Plan: 1.? Continue current medication.? increase Geodon to 80 mg p.o. twice daily with meals with injection of Geodon for p.o. refusal.? gave Invega Sustenna 234 mg IM to deltoid for first loading dose. Next dose due IM deltoid 156 mg by December 09, 2021. We will give Depo-Provera at that time. This has been approved by his guardian. We will also add Paxil in order to decrease his libido. 2.? Continue every 15 minute checks for safety. 3.? Encourage individual, group and milieu therapies. 4.? Encourage sober living treatment after discharge at the highest level of care to which he is willing to commit. Involuntary Hold Information 96 Hour Hold: 96 Hour Involuntary Admission: No Attestations NPU Medical Necessity Statement*: Inpatient hospitalization is medically necessary and the clinically appropriate intervention at this time. We will initiate medications and make changes as indicated. Coding Level of Care Code Acute Resident Care Provider for Kiana Mena Diagnoses Toma F30.9 Psychosis F29 Schizoaffective disorder, bipolar type F25.0
[2021-12-07] MEDS: LORazepam 2 mg/mL INJ 1 mL IM (12:18)
[2021-12-07] MEDS: diphenhydrAMINE 50 mg/mL SDV 1mL IM (12:19)
[2021-12-07] MEDS: haloperidol inj 5 mg/mL INJ 1 mL IM (12:20)
[2021-12-07 14:00] VITALS: BP 126/76; PULSE 98; RESP 20; TEMP 36.9; O2SAT 95
[2021-12-07] MEDS: ziprasidone hcl 40 mg Capsule 80 MG PO (17:48)
--- NOTE | 2021-12-07 17:55 | PC.NURSE ---
1129 Administered a B52 to Pt 5mg Benadryl IM, 2mg Ativan IM, 5mg Haldol IM per Dr. Oakley. 1205 pt resting in bed
[2021-12-07 21:17] VITALS: BP 132/68; PULSE 86; RESP 16; O2SAT 97
[2021-12-08 04:10] VITALS: BMI 30.8
[2021-12-08 06:00] VITALS: BP 130/91; PULSE 89; RESP 96; TEMP 36.8; O2SAT 96
[2021-12-08] MEDS: ziprasidone hcl 40 mg Capsule 80 MG PO ×2 (09:18→17:23)
[2021-12-08] MEDS: PARoxetine 20 mg Tablet PO (09:18)
[2021-12-08] MEDS: medroxyprogesterone 150 mg/ml SDV 1 mL IM (09:19)
[2021-12-08] MEDS: paliperidone palmitate 156 mg Syringe IM (09:19)
--- NOTE | 2021-12-08 09:35 | P.NPUPN_ITS ---
Subjective NPU Subjective: Interval history: He stopped me in the hallway this morning and apologize for his behavior yesterday. He said it will not happen again. When I saw him in the day room he said that it was part of his treatment. He said that he needed to face his fears. He said that he has done that now and probably will not need to do it again. He emphasizes probably leaving very clear possibility that he might need to do it again. He was told that he would be given the Invega injection today and leaving tomorrow at 8 AM. He agreed with that plan. Mental Status Exam MSE Comments: This is an obese white male in hospital scrubs with limited grooming and eye contact.? No abnormal movements. Very mild psychomotor retardation.? cooperative with exam in no acute distress.? Speech was more normal rate and volume.? Mood described as good, affect more calm.? Thought process more organized and no congregational thought content: Patient denied suicidal or homicidal ideations, there were no delusions reported and decreasing delusions with less paranoid and persecutory overtones, he denied auditory or visual hallucinations.? Attention and concentration are improving and memory appeared unreliable but none were formally tested.? He is alert and oriented x3.? Insight and judgment are poor and impulse control is very poor. Cognition: Patient Appearance: Disheveled/Poor Hygiene Ability to Follow Directions: Good Patient Orientation (long list): Person, Place, Time, Name, Birthday, Month and Year Comprehension Ability: No Impairment Hallucination Type: None Delusion Description: Sikh Thought Process: Disorganized Affect: Affect Description: Appropriate and Calm Behavior: Patient Behavior: Appropriate and Cooperative Speech Pattern: Appropriate Vitals/I&O/Wt Last Vital Signs Temp 98.2 F 12/08/21 06:00 Pulse 89 12/08/21 06:00 Resp 96 H 12/08/21 06:00 BP 130/91 12/08/21 06:00 Pulse Ox 96 12/08/21 06:00 Weight last 48 hrs Weight 94.801 kg A&P Assessment and plan (1) Toma: Status: Acute (2) Psychosis: Status: Acute (3) Schizoaffective disorder, bipolar type: Status: Acute Plan This is a 46-year-old resident of a residential care facility who comes because of increased hallucinations and delusions. He is becoming increasingly more sexually inappropriate. Plan: 1.? Continue current medication.? Geodon to 80 mg p.o. twice daily with meals with injection of Geodon for p.o. refusal.? gave Invega Sustenna 234 mg IM to deltoid for first loading dose. The second IM deltoid 156 mg by will be given today along with Depo-Provera 150 mg. This has been approved by his guardian. We will also add Paxil in order to decrease his libido. 2.? Continue every 15 minute checks for safety. 3.? Encourage individual, group and milieu therapies. 4.? Encourage sober living treatment after discharge at the highest level of care to which he is willing to commit. Involuntary Hold Information 96 Hour Hold: 96 Hour Involuntary Admission: No Attestations NPU Medical Necessity Statement*: Inpatient hospitalization is medically necessary and the clinically appropriate intervention at this time. We will initiate medications and make changes as indicated. Coding Level of Care Code Acute Director Of Automation for Kiana Mena Diagnoses Toma F30.9 Psychosis F29 Schizoaffective disorder, bipolar type F25.0
[2021-12-08 14:00] VITALS: BP 132/86; PULSE 73; RESP 18; TEMP 36.7; O2SAT 98
[2021-12-08 21:35] VITALS: RESP 21
[2021-12-09 06:00] VITALS: BP 134/88; PULSE 73; RESP 22; TEMP 36.8; O2SAT 97
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
[2021-12-09 07:24] VITALS: BP 134/88; PULSE 73; RESP 22; TEMP 36.8; O2SAT 97
[2021-12-09] MEDS: PARoxetine 20 mg Tablet PO (08:14)
[2021-12-09] MEDS: ziprasidone hcl 40 mg Capsule 80 MG PO (08:14)
--- NOTE | 2021-12-09 08:21 | PC.NURSE ---
[facility] and report given to Ofe. Notified guardian by voicemail. Discharge instructions given to patient and Discharge summary given to patient to give to facility on arrival.
--- NOTE | 2021-12-09 09:27 | DCPLANNER ---
IMM completed on 12/09/21 @ 4001. Pt was given a copy of [id number] and understands his rights.
== END 2021-12-09 08:45 | disposition home or self-care (01) | DRG 885 ==
PROVIDERS: Admitting Provider Psychiatry & Neurology Psychiatry; Visit Provider Psychiatry & Neurology Psychiatry
DX: F25.0 Schizoaffective disorder, bipolar type (principal); F30.9 Manic episode, unspecified; F29 Unspecified psychosis not due to a substance or known physiological condition; Z62.810 Personal history of physical and sexual abuse in childhood; Z62.812 Personal history of neglect in childhood; Z91.52 Personal history of nonsuicidal self-harm; Z91.14 Patient's other noncompliance with medication regimen; R45.4 Irritability and anger
CPT/HCPCS: 81001; 96372; 97150; 97165; J1050; J1200; J1630; J2060; J3486; Q0163